=== PATIENT | male | born 1970 | race Caucasian/White ===

== ENCOUNTER 2022-11-18 13:17 | Inpatient (IN) | payer OTHER ==
[2022-11-18] MEDS ORDERED: chlordiazePOXIDE HCL 25 MG CAPSULE PO ONE (13:59)
[2022-11-18 14:13] VITALS: TEMP 97.3; BMI 30.4
[2022-11-18] MEDS ORDERED: chlordiazePOXIDE HCL 25 MG CAPSULE ONE ×2 (14:28→16:34)
[2022-11-18 14:30] VITALS: RESP 18
[2022-11-18] MEDS ORDERED: LOPERAMIDE HCL 2 MG CAPSULE PO PRN (14:36)
[2022-11-18] MEDS ORDERED: MAG HYDROX/AL HYDROX/SIMETH 30 ML UNIT-DOSE CUP PO PRN (14:36)
[2022-11-18] MEDS ORDERED: hydrOXYzine PAMOATE 25 MG CAPSULE (FP) PO PRN (14:36)
[2022-11-18] MEDS ORDERED: ACETAMINOPHEN 325 MG TABLET (FP) PO PRN ×2 (14:36)
[2022-11-18] MEDS ORDERED: DICYCLOMINE HCL 10 MG CAPSULE PO PRN (14:36)
[2022-11-18] MEDS ORDERED: NICOTINE 10 MG CARTRIDGE (INHALER) IH PRN (14:36)
[2022-11-18] MEDS ORDERED: NALOXONE HCL (KLOXXADO) 8 MG SPRAY NS PRN (14:36)
[2022-11-18] MEDS ORDERED: chlordiazePOXIDE HCL 25 MG CAPSULE PO PRN (14:36)
[2022-11-18] MEDS ORDERED: METHOCARBAMOL 500 MG TABLET PO PRN (14:36)
[2022-11-18] MEDS ORDERED: ONDANSETRON *ODT* 4 MG TABLET SL PRN (14:36)
[2022-11-18] MEDS ORDERED: MAGNESIUM HYDROX 2400MG/30ML ORAL SUSPENSION 30 ML CUP PO PRN (14:36)
[2022-11-18] MEDS ORDERED: BISMUTH SUBSALICYLATE 524 MG/30 ML PO PRN (14:36)
[2022-11-18] MEDS ORDERED: IBUPROFEN 600 MG TABLET (FP) PO PRN (14:36)
[2022-11-18] MEDS ORDERED: BENZOCAINE/MENTHOL (CHLORASEPTIC ) LOZENGE MM PRN (14:36)
[2022-11-18] MEDS ORDERED: IBUPROFEN 400 MG TABLET (FP) PO PRN (14:36)
[2022-11-18] MEDS ORDERED: POLYETHYLENE GLYCOL (HEALTHYLAX) 3350 17 GM PACKET PO PRN (14:36)
[2022-11-18] MEDS ORDERED: chlordiazePOXIDE HCL 25 MG CAPSULE PO SCH (17:00)
[2022-11-18 19:16] VITALS: BP 114/66
[2022-11-18 22:00] VITALS: PULSE 120
[2022-11-18] MEDS ORDERED: THIAMINE HCL 100 MG TABLET (FP) PO SCH (22:00)
[2022-11-18] MEDS ORDERED: MELATONIN 5 MG TABLETS PO SCH (22:00)
[2022-11-19] MEDS ORDERED: PRENATAL VITAMINS W/ FOLIC ACID TABLET (FP) PO SCH (10:00)
[2022-11-20] MEDS ORDERED: chlordiazePOXIDE HCL 25 MG CAPSULE PO SCH (05:00)
[2022-11-21] MEDS ORDERED: chlordiazePOXIDE HCL 10 MG CAPSULE PO PRN
[2022-11-21] MEDS ORDERED: chlordiazePOXIDE HCL 10 MG CAPSULE PO SCH (05:00)
[2022-11-22] MEDS ORDERED: chlordiazePOXIDE HCL 10 MG CAPSULE PO SCH (05:00)
[2022-11-23] MEDS ORDERED: chlordiazePOXIDE HCL 10 MG CAPSULE PO ONE (05:00)
== END 2022-11-19 10:06 | disposition short-term general hospital (02) | DRG 775 ==
LOC: YASAS 13:17 → Y6N 18:42
PROVIDERS: ADMIT Allergy & Immunology; ATTEND Family Medicine
PROC: HZ2ZZZZ Detoxification Services for Substance Abuse Treatment (ICD-10-PCS; principal; 2022-11-18)
DX: F10.230 Alcohol dependence with withdrawal, uncomplicated (principal); F41.9 Anxiety disorder, unspecified; F32.A Depression, unspecified; G62.9 Polyneuropathy, unspecified; M16.12 Unilateral primary osteoarthritis, left hip; R00.0 Tachycardia, unspecified; Z86.69 Personal history of other diseases of the nervous system and sense organs; Z87.891 Personal history of nicotine dependence
CPT/HCPCS: 93005; 93010; C9803-CS; U0003; U0005

== ENCOUNTER 2022-11-18 20:18 | Inpatient (IN) | payer OTHER ==
[2022-11-18] MEDS ORDERED: SODIUM CHLORIDE 0.9% 500 ML INFUS.BAG IV ONE ×2 (20:33→21:29)
[2022-11-18] MEDS ORDERED: LORazepam 2 MG/ML SDV VIAL IVPUSH ONE ×2 (20:33→20:45)
[2022-11-18] MEDS ORDERED: dilTIAZem HCL 50 MG/10 ML - 10 ML VIAL IVPUSH ONE (20:33)
[2022-11-18 20:50] VITALS: BMI 32.6
[2022-11-18 20:54] LABS: BASO % 0.9 % (0-2.0); EOS % 1.2 % (0-4.5); HEMATOCRIT 38.3 % (35.4-49); HEMOGLOBIN 13.2 GM/dL (11.7-16.9); LYMPH % 29.7 % (8-40); MCH 32.3 pg (25.7-33.7); MCHC 34.6 g/dl (32.0-35.9); MEAN CELL VOLUME 93.4 fl (80-96); MEAN PLT VOLUME 6.8 fl (7.5-11.1); MONO % 10.2 % (3.8-10.2); PLATELET COUNT 119 10^3/uL (134-434); RDW 16.1 % (11.9-15.9); WHITE BLOOD COUNT 5.4 K/mm3 (4.0-10.0)
[2022-11-18 21:01] LABS: INR 1.15 (0.83-1.09); PROTHROMBIN TIME (PATIENT) 13.3 SEC (9.7-13.0)
[2022-11-18 21:04] LABS: ACTIVATED PTT 32.4 SECONDS (25.2-36.5)
[2022-11-18 21:10] LABS: CHLORIDE 102 mmol/L (98-107); SODIUM 138 mmol/L (136-145)
[2022-11-18 21:12] LABS: ALBUMIN 3.6 g/dl (3.4-5.0); ANION GAP 11 MMOL/L (8-16); BLOOD UREA NITROGEN 10.1 mg/dL (7-18); CALCIUM 8.7 mg/dL (8.5-10.1); CO2 25 mmol/L (21-32); GLUCOSE,RANDOM 90 mg/dL (74-106); LIPASE 774 U/L (73-393); MAGNESIUM 1.4 mg/dL (1.8-2.4)
[2022-11-18 21:15] LABS: SGOT/AST 100 U/L (15-37); SGPT/ALT 51 U/L (13-61)
[2022-11-18 21:17] LABS: BILIRUBIN,TOTAL 0.9 mg/dL (0.2-1); TOT PROT 7.3 g/dl (6.4-8.2)
[2022-11-18 21:18] LABS: ALK PHOS 99 U/L (45-117)
[2022-11-18] MEDS ORDERED: MAGNESIUM SULF 50% (8.12 MEQ/2 ML-1 GM VIAL) IVPB ONE (21:23)
[2022-11-18 21:25] LABS: LACTIC ACID 3.2 mmol/L (0.4-2.0)
[2022-11-18 21:31] LABS: VENOUS BASE EXCESS -3.4 mmol/L (-2-2); VENOUS O2 SATURATION 77.8 % (70-80); VENOUS PCO2 36.1 mmHg (38-52); VENOUS PH 7.384 (7.310-7.410)
[2022-11-18] MEDS ORDERED: MAGNESIUM SULFATE IN WATER 2 GM/50 ML IVPB IVPB ONE (21:34)
[2022-11-19] MEDS ORDERED: LORazepam 2 MG/ML SDV VIAL IVPUSH ONE (00:03)
[2022-11-19] MEDS ORDERED: METOPROLOL TARTRATE 25 MG TABLET (FP) ONE ×4 (00:18→22:34)
[2022-11-19] MEDS: METOPROLOL TARTRATE 25 MG TABLET (FP) PO SCH ×4 (00:22→22:41)
[2022-11-19] MEDS: SODIUM CHLORIDE 1,000 ML IV SCH (01:43)
[2022-11-19] MEDS ORDERED: THIAMINE HCL 100 MG TABLET (FP) PO ONE (02:48)
[2022-11-19] MEDS ORDERED: FOLIC ACID 1 MG TABLET (FP) PO ONE (02:48)
[2022-11-19] MEDS ORDERED: hydrALAZINE HCL 20 MG/ML VIAL IVPUSH ONE (04:38)
[2022-11-19] MEDS ORDERED: LORazepam 1 MG TABLET ONE ×6 (05:51→22:34)
[2022-11-19] MEDS: LORazepam 1 MG TABLET PO SCH ×4 (06:05→22:41)
[2022-11-19] MEDS: METOPROLOL TARTRATE 5 MG/5 ML VIAL IVPUSH PRN ×4 (07:11→22:41)
[2022-11-19] MEDS ORDERED: METOPROLOL TARTRATE 5 MG/5 ML VIAL ONE ×4 (07:12→22:38)
[2022-11-19 07:41] LABS: BASO % 0.9 % (0-2.0); EOS % 2.7 % (0-4.5); HEMATOCRIT 32.3 % (35.4-49); HEMOGLOBIN 11.2 GM/dL (11.7-16.9); MCH 32.6 pg (25.7-33.7); MCHC 34.6 g/dl (32.0-35.9); MEAN CELL VOLUME 94.1 fl (80-96); MEAN PLT VOLUME 7.4 fl (7.5-11.1); MONO % 9.1 % (3.8-10.2); NEUT % 59.3 % (42.8-82.8); PLATELET COUNT 73 10^3/uL (134-434); RBC 3.43 M/mm3 (4.00-5.60); RDW 15.7 % (11.9-15.9); WHITE BLOOD COUNT 3.9 K/mm3 (4.0-10.0)
[2022-11-19 07:43] LABS: ALBUMIN 3.1 g/dl (3.4-5.0); BLOOD UREA NITROGEN 8.1 mg/dL (7-18); MAGNESIUM 1.7 mg/dL (1.8-2.4)
[2022-11-19 07:46] LABS: CREATININE 0.8 mg/dL (0.55-1.3); PHOSPHOROUS 3.2 mg/dL (2.5-4.9)
[2022-11-19 07:52] LABS: BILIRUBIN,TOTAL 1.2 mg/dL (0.2-1)
[2022-11-19] MEDS ORDERED: FOLIC ACID 1 MG TABLET (FP) ONE (08:34)
[2022-11-19] MEDS ORDERED: THIAMINE HCL 200 MG/2 ML VIAL ONE (08:34)
[2022-11-19] MEDS ORDERED: ENOXAPARIN NA (PORCINE) 40 MG/0.4 ML DISP.SYRIN SQ ONE (08:34)
[2022-11-19] MEDS ORDERED: SERTRALINE HCL 50 MG TABLET (FP) ONE (08:34)
[2022-11-19] MEDS: GABAPENTIN 400 MG CAPSULE PO PRN (08:45)
[2022-11-19] MEDS ORDERED: LORazepam 0.5 MG TABLET ONE (09:01)
[2022-11-19] MEDS: SERTRALINE HCL 50 MG TABLET (FP) PO SCH (09:21)
[2022-11-19] MEDS: FOLIC ACID 1 MG TABLET (FP) PO SCH (09:21)
[2022-11-19] MEDS: THIAMINE HCL 200 MG/2 ML VIAL IVPB SCH (09:21)
[2022-11-19] MEDS: ENOXAPARIN NA (PORCINE) 40 MG/0.4 ML DISP.SYRIN SQ SCH (09:21)
[2022-11-19] MEDS ORDERED: POTASSIUM CHLORIDE TABS 10 MEQ TABLET.ER (FP) PO ONE (09:40)
[2022-11-19] MEDS ORDERED: PANTOPRAZOLE 40 MG TABLET PO ONE (10:52)
[2022-11-19] MEDS ORDERED: POTASSIUM CHLORIDE TABS 10 MEQ TABLET.ER (FP) ONE (10:52)
[2022-11-19] MEDS: NALTREXONE HCL 50 MG TABLET PO SCH (10:55)
[2022-11-19] MEDS: PANTOPRAZOLE 40 MG TABLET PO SCH (10:55)
[2022-11-19] MEDS: LORazepam 1 MG TABLET PO PRN ×2 (10:58→13:05)
[2022-11-20] MEDS: SODIUM CHLORIDE 1,000 ML IV SCH ×2 (02:03→18:10)
[2022-11-20] MEDS ORDERED: METOPROLOL TARTRATE 25 MG TABLET (FP) ONE (06:57)
[2022-11-20] MEDS ORDERED: LORazepam 1 MG TABLET ONE ×3 (06:58→14:04)
[2022-11-20] MEDS: LORazepam 1 MG TABLET PO SCH ×4 (06:58→22:55)
[2022-11-20] MEDS: METOPROLOL TARTRATE 25 MG TABLET (FP) PO SCH ×3 (06:58→22:55)
[2022-11-20 08:11] LABS: BASO % 0.6 % (0-2.0); EOS % 3.1 % (0-4.5); HEMATOCRIT 32.7 % (35.4-49); HEMOGLOBIN 11.6 GM/dL (11.7-16.9); LYMPH % 22.4 % (8-40); MCH 33.2 pg (25.7-33.7); MCHC 35.6 g/dl (32.0-35.9); MEAN CELL VOLUME 93.5 fl (80-96); MEAN PLT VOLUME 7.6 fl (7.5-11.1); MONO % 8.7 % (3.8-10.2); NEUT % 65.2 % (42.8-82.8); PLATELET COUNT 91 10^3/uL (134-434); RDW 15.6 % (11.9-15.9); WHITE BLOOD COUNT 5.1 K/mm3 (4.0-10.0)
[2022-11-20 08:29] LABS: ALBUMIN 3.3 g/dl (3.4-5.0); BLOOD UREA NITROGEN 5.6 mg/dL (7-18); CALCIUM 8.9 mg/dL (8.5-10.1); MAGNESIUM 1.7 mg/dL (1.8-2.4)
[2022-11-20 08:32] LABS: CREATININE 0.7 mg/dL (0.55-1.3)
[2022-11-20 08:34] LABS: BILIRUBIN,TOTAL 1.4 mg/dL (0.2-1); TOT PROT 6.6 g/dl (6.4-8.2)
[2022-11-20] MEDS ORDERED: CEFTRIAXONE 1 GM/50 ML BAG ONE (08:58)
[2022-11-20] MEDS ORDERED: PANTOPRAZOLE 40 MG TABLET PO ONE (08:58)
[2022-11-20] MEDS ORDERED: THIAMINE HCL 200 MG/2 ML VIAL ONE (08:58)
[2022-11-20] MEDS ORDERED: FOLIC ACID 1 MG TABLET (FP) ONE (08:58)
[2022-11-20] MEDS ORDERED: ENOXAPARIN NA (PORCINE) 40 MG/0.4 ML DISP.SYRIN SQ ONE (08:58)
[2022-11-20] MEDS: ENOXAPARIN NA (PORCINE) 40 MG/0.4 ML DISP.SYRIN SQ SCH (09:14)
[2022-11-20] MEDS: SERTRALINE HCL 50 MG TABLET (FP) PO SCH (09:14)
[2022-11-20] MEDS: PANTOPRAZOLE 40 MG TABLET PO SCH (09:14)
[2022-11-20] MEDS: THIAMINE HCL 200 MG/2 ML VIAL IVPB SCH (09:14)
[2022-11-20] MEDS: NALTREXONE HCL 50 MG TABLET PO SCH (09:14)
[2022-11-20] MEDS: FOLIC ACID 1 MG TABLET (FP) PO SCH (09:14)
[2022-11-20] MEDS ORDERED: SERTRALINE HCL 50 MG TABLET (FP) ONE (09:15)
[2022-11-20] MEDS: LORazepam 1 MG TABLET PO PRN (14:03)
[2022-11-20] MEDS ORDERED: metoPROLOL SUCCINATE 25 MG TAB.SR.24H (FP) PO ONE (14:04)
[2022-11-21] MEDS ORDERED: LORazepam 0.5 MG TABLET PO PRN
[2022-11-21] MEDS: SODIUM CHLORIDE 1,000 ML IV SCH (06:34)
[2022-11-21] MEDS: METOPROLOL TARTRATE 25 MG TABLET (FP) PO SCH ×4 (06:35→22:24)
[2022-11-21] MEDS: LORazepam 0.5 MG TABLET PO SCH ×4 (06:38→22:26)
[2022-11-21] MEDS: ENOXAPARIN NA (PORCINE) 40 MG/0.4 ML DISP.SYRIN SQ SCH (10:18)
[2022-11-21] MEDS: PANTOPRAZOLE 40 MG TABLET PO SCH (10:19)
[2022-11-21] MEDS: FOLIC ACID 1 MG TABLET (FP) PO SCH (10:19)
[2022-11-21] MEDS: SERTRALINE HCL 50 MG TABLET (FP) PO SCH (10:19)
[2022-11-21] MEDS: THIAMINE HCL 200 MG/2 ML VIAL IVPB SCH (10:24)
[2022-11-21] MEDS: NALTREXONE HCL 50 MG TABLET PO SCH (11:08)
[2022-11-21] MEDS ORDERED: MAGNESIUM 1GM/D5W - 1 GM/100 ML IVPB IVPB ONE (12:06)
[2022-11-21] MEDS: METOPROLOL TARTRATE 5 MG/5 ML VIAL IVPUSH PRN (13:17)
[2022-11-22] MEDS ORDERED: LORazepam 0.5 MG TABLET PO ONE (05:00)
[2022-11-22] MEDS: METOPROLOL TARTRATE 25 MG TABLET (FP) PO SCH ×3 (05:28→21:21)
[2022-11-22] MEDS: ENOXAPARIN NA (PORCINE) 40 MG/0.4 ML DISP.SYRIN SQ SCH (09:56)
[2022-11-22] MEDS: NALTREXONE HCL 50 MG TABLET PO SCH (09:56)
[2022-11-22] MEDS: PANTOPRAZOLE 40 MG TABLET PO SCH (09:56)
[2022-11-22] MEDS: SERTRALINE HCL 50 MG TABLET (FP) PO SCH (09:56)
[2022-11-22] MEDS: FOLIC ACID 1 MG TABLET (FP) PO SCH (09:57)
[2022-11-22] MEDS: THIAMINE HCL 200 MG/2 ML VIAL IVPB SCH (12:55)
[2022-11-22] MEDS ORDERED: LORazepam 1 MG TABLET PO PRN (17:48)
[2022-11-22] MEDS: GABAPENTIN 400 MG CAPSULE PO PRN (21:21)
[2022-11-23] MEDS: METOPROLOL TARTRATE 25 MG TABLET (FP) PO SCH ×2 (06:16→14:12)
[2022-11-23] MEDS: NALTREXONE HCL 50 MG TABLET PO SCH (10:21)
[2022-11-23] MEDS: PANTOPRAZOLE 40 MG TABLET PO SCH (10:21)
[2022-11-23] MEDS: SERTRALINE HCL 50 MG TABLET (FP) PO SCH (10:21)
[2022-11-23] MEDS: THIAMINE HCL 200 MG/2 ML VIAL IVPB SCH (10:21)
[2022-11-23] MEDS: FOLIC ACID 1 MG TABLET (FP) PO SCH (10:21)
[2022-11-23] MEDS: ENOXAPARIN NA (PORCINE) 40 MG/0.4 ML DISP.SYRIN SQ SCH (10:22)
[2022-11-23 12:45] VITALS: RESP 22
[2022-11-23 14:02] VITALS: BP 133/68; PULSE 65; TEMP 98
== END 2022-11-23 15:34 | disposition home or self-care (01) | DRG 201 ==
LOC: JER 20:18 → JERBED 22:38 → OBSVTOIN 11-19 01:20 → J4W 11-20 14:27
PROVIDERS: ADMIT Internal Medicine
PROC: HZ2ZZZZ Detoxification Services for Substance Abuse Treatment (ICD-10-PCS; principal; 2022-11-18)
DX: I47.1 Supraventricular tachycardia (principal); I24.8 Other forms of acute ischemic heart disease; F10.239 Alcohol dependence with withdrawal, unspecified; F19.10 Other psychoactive substance abuse, uncomplicated; R25.3 Fasciculation; I48.92 Unspecified atrial flutter; F41.8 Other specified anxiety disorders; G62.89 Other specified polyneuropathies; L97.518 Non-pressure chronic ulcer of other part of right foot with other specified severity; M16.12 Unilateral primary osteoarthritis, left hip; E66.9 Obesity, unspecified; Z68.32 Body mass index [BMI] 32.0-32.9, adult
CPT/HCPCS: 0241U-QW; 36415; 70450-TC; 71045-TC-FY; 80053; 80307; 82803; 83605; 83690; 83735; 84100; 84439; 84443; 84484; 85025; 85610; 85730; 86850; 86900; 86901; 93005; 93010; 93306-TC; 99291; G0378